=== PATIENT | male | born 1990 | race American Indian/Alaskan Native ===

== ENCOUNTER 2017-09-15 15:30 | Emergency (ER) | payer OTHER ==
[2017-09-15] MEDS ORDERED: Sodium Chloride 0.9% 10 ML Syringe FLUSH PRN (16:28)
--- NOTE | 2017-09-15 17:01 | CR ---
Clinical history: A 26-year-old male painful red and swollen left knee. Interpretation: *Prominent prepatellar soft tissue swelling and...bone fragment which appears to be avulsed off the d orsal lateral aspect of the patella. Acute trauma? Nondisplaced fracture probable but age uncertain. No sign of suprapatellar bursal effusion. No foreign body or underlying subcutaneous emphysema. Symmetric spacing normal-appearing knee joint without appreciable arthritic change. No sign of other fracture or dislocation. No radiopaque loose joint bodies.
[2017-09-15] MEDS ORDERED: Vancomycin 1.5 GM in Sodium Chloride 0.9% 500 ML IV ONE (17:03)
[2017-09-15 17:18] LABS: CHLORIDE,CL 102 mmol/L (101-111); SODIUM,NA 137 mmol/L (135-145)
--- NOTE | 2017-09-15 17:45 | EDM.PDOC ---
ED HPI GENERAL MEDICAL PROBLEM - General Chief Complaint: Lower Extremity Injury/Pain Stated Complaint: LEFT KNEE INFECTED? [id number] Time Seen by Provider: 09/15/17 16:24 Source of Information: Reports: Patient, RN, RN Notes Reviewed History Limitations: Reports: No Limitations - History of Present Illness INITIAL COMMENTS - FREE TEXT/NARRATIVE: Pt presents to the ER with c/o sore, swollen, red left knee with a wound. 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 He states today the knee became red and swollen, tender and difficult to walk. He states he did fall on the ice about 1 week ago which originally created the wound on the knee. Patient denies fever, chills, N/V/D, chest pains, SOB, cough, or sore throat. Onset: Gradual Location: Reports: Lower Extremity, Left Quality: Reports: Throbbing Severity: Moderate Improves with: Reports: None Worsens with: Reports: Movement Associated Symptoms: Reports: No Other Symptoms Left Knee Pain Score (Numeric/FACES): 9 - Related Data Allergies Allergy/AdvReac Type Severity Reaction Status Date / Time No Known Allergies Allergy Verified 09/15/17 15:48 Home Meds: Home Meds . [No Known Home Meds] 09/15/17 [History] Past Medical History - Past Surgical History Musculoskeletal Surgical History: Reports: Other (See Below) Other Musculoskeletal Surgeries/Procedures:: Fracture right leg, and right hand Social & Family History - Tobacco Use Smoking Status *Q: Current Every Day Smoker Years of Tobacco use: 2 Packs/Tins Daily: 1 - Caffeine Use Caffeine Use: Reports: Coffee, Energy Drinks, Soda - Recreational Drug Use Recreational Drug Use: No Review of Systems - Review of Systems Review Of Systems: ROS reveals no pertinent complaints other than HPI. ED EXAM, GENERAL - Physical Exam Exam: See Below Exam Limited By: No Limitations General Appearance: Alert, WD/WN, No Apparent Distress Eye Exam: Bilateral Eye: EOMI, Normal Inspection Ears: Normal External Exam, Hearing Grossly Normal Nose: Normal Inspection Throat/Mouth: Normal Inspection, Normal Voice, No Airway Compromise Head: Atraumatic, Normocephalic Neck: Normal Inspection, Supple, Non-Tender, Full Range of Motion Respiratory/Chest: No Respiratory Distress, Lungs Clear, Normal Breath Sounds, No Accessory Muscle Use, Chest Non-Tender Cardiovascular: Normal Peripheral Pulses, Regular Rate, Rhythm, No Edema, No Gallop, No JVD, No Murmur, No Rub Peripheral Pulses: 2+: Radial (L), Radial (R), Dorsalis Pedis (L), Dorsalis Pedis (R) GI/Abdominal: Normal Bowel Sounds, Soft, Non-Tender, No Organomegaly, No Distention, No Abnormal Bruit, No Mass (Male) Exam: Deferred Rectal (Males) Exam: Deferred Back Exam: Normal Inspection, Full Range of Motion Extremities: No Pedal Edema, Normal Capillary Refill, Joint Swelling (left knee) , Leg Pain (left knee), Limited Range of Motion, Increased Warmth (left knee), Redness (left knee) Neurological: Alert, Oriented, CN II-XII Intact, Normal Cognition, No Motor/ Sensory Deficits Psychiatric: Normal Affect, Normal Mood Skin Exam: Warm, Dry, Erythema (left knee), Increased Warmth (left knee), Wound/ Incision (left knee, quarter sized) Lymphatic: No Adenopathy Course - Vital Signs Last Recorded V/S: Last Vital Signs Temp 97.6 F 09/15/17 18:16 Pulse 65 09/15/17 18:16 Resp 18 09/15/17 18:16 BP 125/65 09/15/17 18:16 Pulse Ox 100 09/15/17 18:16 - Orders/Labs/Meds Orders: Active Orders 24 hr Category Date Time Status Peripheral IV Care [RC] . DIRECTED Care 09/15/17 16:28 Active CULTURE WOUND [RM] Stat Lab 09/15/17 17:00 Received Peripheral IV Insertion Adult [OM.PC] Stat Oth 09/15/17 16:28 Ordered Labs: Laboratory Tests 09/15/17 09/15/17 Range/Units 16:50 16:50 WBC 15.0 H (5.0-10.0) 10^3/uL RBC 4.76 (4.6-6.2) 10^6/uL Hgb 14.2 (14.0-18.0) g/dL Hct 42.2 (40.0-54.0) % MCV 88.7 (80-100) fL MCH 29.8 (27.0-34.0) pg MCHC 33.6 (33.0-35.0) g/dL Plt Count 282 (150-450) 10^3/uL Neut % (Auto) 74.6 (42.2-75.2) % Lymph % (Auto) 16.2 L (20.5-50.1) % [place] % (Auto) 7.6 (2-8) % Eos % (Auto) 1.3 (1.0-3.0) % Baso % (Auto) 0.3 (0.0-1.0) % Sodium 137 (135-145) mmol/L Potassium 4.0 (3.6-5.0) mmol/L Chloride 102 (101-111) mmol/L Carbon Dioxide 28.0 (21.0-31.0) mmol/L Anion Gap 11.0 BUN 11 (7-18) mg/dL Creatinine 1.0 (0.6-1.3) mg/dL Est Cr Clr Drug Dosing 121.32 mL/min Estimated GFR (MDRD) > 60 BUN/Creatinine Ratio 11.00 Glucose 87 (74-105) mg/dL Calcium 9.5 (8.4-10.2) mg/dl Total Bilirubin 0.6 (0.2-1.0) mg/dL AST 26 (10-42) IU/L ALT 45 (10-60) IU/L Alkaline Phosphatase 91 (42-121) IU/L Total Protein 7.6 (6.7-8.2) g/dl Albumin 4.3 (3.2-5.5) g/dl Globulin 3.3 Albumin/Globulin Ratio 1.30 Meds: Medications Discontinued Medications Generic Name Dose Route Start Last Admin Trade Name Freq PRN Reason Stop Dose Admin Vancomycin HCl 1.5 gm/ Sodium 500 mls @ 334 mls/hr 09/15/17 17:03 09/15/17 17 :20 Chloride IV 09/15/17 18:32 334 mls/hr ONETIME ONE Administration Sodium Chloride 10 ml 09/15/17 16:28 09/15/17 17:23 Saline Flush FLUSH 10 ml ASDIRECTED PRN Administration Keep Vein Open - Radiology Interpretation Free Text/Narrative:: left knee xray: Abnormal, read as an avulsion of the left patella. See rad report - Re-Assessments/Exams Free Text/Narrative Re-Assessment/Exam: 09/15/17 19:36 Discussed patient case with Dr. Wilson at [facility]. He states he does not feel this is an avulsion of the left patella, but a bursitis. Dr. Wilson recommends antibiotic therapy and follow up next week in the clinic. Departure - Departure Time of Disposition: 18:30 Disposition: Home, Self-Care 01 Condition: Fair Clinical Impression: Bursitis due to bacterial infection, Abscess - Discharge Information Instructions: Abscess, [id number], Bursitis, [id number] Referrals: PCP,None [Primary Care Provider] - Forms: ED Department Discharge Additional Instructions: Follow up with your primary care facility on Monday. RX: Doxycycline, Bactrim Elevate when possible. - My Orders Last 24 Hours: My Active Orders 09/15/17 16:28 Peripheral IV Care [RC] . DIRECTED Peripheral IV Insertion Adult [OM.PC] Stat 09/15/17 17:00 CULTURE WOUND [RM] Stat - Assessment/Plan Last 24 Hours: My Active Orders 09/15/17 16:28 Peripheral IV Care [RC] . DIRECTED Peripheral IV Insertion Adult [OM.PC] Stat 09/15/17 17:00 CULTURE WOUND [RM] Stat
== END 2017-09-15 18:58 | disposition home or self-care (01) ==
LOC: EEVIPCON 15:30 → DL.ED 15:30
DX: M70.52 Other bursitis of knee, left knee (principal); L02.416 Cutaneous abscess of left lower limb; B96.89 Other specified bacterial agents as the cause of diseases classified elsewhere; F17.210 Nicotine dependence, cigarettes, uncomplicated; W00.0XXA Fall on same level due to ice and snow, initial encounter
CPT/HCPCS: 36415; 73562; 80053; 85025; 87070; 96365; 96366; 99284; J3370; J7040; J7050; 87077; 87186